=== PATIENT | female | born 1995 | race Caucasian/White ===

== ENCOUNTER 2018-12-14 11:53 | Emergency (ER) | payer OTHER ==
--- NOTE | 2018-12-14 12:21 | PHYS DOC ---
Past History Past Medical History: No Pertinent History Past Surgical History: No Surgical History Alcohol Use: Rarely Drug Use: None Adult General Chief Complaint Chief Complaint: SKIN PROBLEM HPI HPI Patient is a 23-year-old female who presents to the emergency department for evaluation. She states that she has had a cyst in her suprapubic area for over a decade, and while jogging today it ruptured, and drained some thicker brown fluid, and the patient presents to the emergency department for evaluation. She is not having any pain or discomfort, and has no other complaints. She states that she saw many years ago and was told that she can have the cyst removed that she wanted but she did not have any procedures done. There is no definitive diagnosis was this was actually. She has not had any surrounding warmth or erythema, fevers or chills. She has no other complaints Review of Systems Review of Systems Constitutional: Denies fever or chills [] Musculoskeletal: Denies back pain or joint pain [] Integument: Denies rash or skin lesions [] Neurologic: Denies headache, focal weakness or sensory changes [] Allergies Allergies Allergies Coded Allergies Type Severity Reaction Last Updated Verified No Known Drug Allergies 12/14/18 No Physical Exam Physical Exam PHYSICAL EXAM: HEENT: Atruamatic NECK: Supple, normal ROM, non-tender. CARDIAC: Regular Rate and Rhythm LUNGS: Clear Bilaterally SKIN: There is a small oval shaped 3 cm x 1 cm erythematous cyst on the lower abdominal wall, just above the pubic area, without any significant surrounding erythema. The area is nontender to touch. The skin of the cyst is soft and fleshy . Current Patient Data Vital Signs Vital Signs Date Time Temp Pulse Resp B/P (MAP) Pulse Ox O2 Delivery O2 Flow Rate FiO2 12/14/18 12:02 98.0 97 18 100 Room Air EKG EKG [] Radiology/Procedures Radiology/Procedures [] Course & Med Decision Making Course & Med Decision Making I discussed the uncertain etiology of the cyst, the need for dermatology evaluation for further evaluation, although given the duration of presence of the cyst, it is likely benign, I discussed return precautions. I did not think that any particular measures need to be taken due to the cyst draining, although recommended topical antibiotic ointment, available [id number], to prevent infection. Dragon Disclaimer Dragon Disclaimer This electronic medical record was generated, in whole or in part, using a voice recognition dictation system. Departure Departure: Impression: Primary Impression: Ruptured epidermal cyst Disposition: 01 HOME, SELF-CARE Condition: STABLE Referrals: WENCESLAO VYAS (PCP) Patient Instructions: Breast Cyst Additional Instructions: Apply topical antibiotic ointment to the affected area for the next 4-5 days, to prevent infection. LISA ARRIETA MD Dec 14, 2018 12:21
[2018-12-14 12:31] VITALS: BP 126/62
== END 2018-12-14 12:31 | disposition home or self-care (01) ==
LOC: ER 11:53
DX: L72.0 Epidermal cyst (principal)
CPT/HCPCS: 99281